=== PATIENT | male | born 1965 | race Hispanic/Latino ===

== ENCOUNTER 2017-11-16 05:15 | Inpatient (IN) | payer OTHER ==
[2017-11-16 06:15] LABS: Basophils % (Auto) 0.9 % (0.0-1.8); Eosinophils % (Auto) 3.1 % (0.0-4.3); Hematocrit 42.6 % (35.5-45.6); Hemoglobin 14.9 gm/dl (11.8-15.2); Mean Corpuscular HGB Conc 35 % (32-34); Mean Corpuscular Hemoglobin 31 pg (28-32); Mean Corpuscular Volume 88 fl (84-94); Platelet Count 155 K/mm3 (140-440); Red Blood Count 4.87 M/mm3 (3.65-5.03); Red Cell Distribution Width 12.6 % (13.2-15.2); White Blood Count 6.2 K/mm3 (4.5-11.0)
[2017-11-16 06:36] LABS: Anion Gap 21 mmol/L; BUN/Creatinine Ratio 13; Blood Urea Nitrogen 10 mg/dL (9-20); Calcium 9.4 mg/dL (8.4-10.2); Carbon Dioxide 20 mmol/L (22-30); Chloride 102.9 mmol/L (98-107); Glucose 110 mg/dL (75-100); Potassium 4.2 mmol/L (3.6-5.0); Sodium 140 mmol/L (137-145)
--- NOTE | 2017-11-16 06:38 | Emergency Department Report ---
ED Chest Pain HPI - General Chief Complaint: Chest Pain Stated Complaint: CHEST PAIN Time Seen by Provider: 11/16/17 06:09 Source: patient, EMS Mode of arrival: Stretcher Limitations: No Limitations - History of Present Illness Initial Comments: This is a 52-year-old male presents to the emergency department with a complaint of some chest pain that has been going on since last night. It radiates up to the left neck and shoulder as well as to the upper left arm. It started after dinner last night but was not very intense and the patient was able to fall asleep. He woke up again at 2 AM and it was worse. At this time he took some Tylenol without any relief of his symptoms. It started to subside again and he was able to get back to sleep but then woke up again at 4 AM and appeared even worse than before. Currently it is an intensity of 6 or 7 out of 10 and is an aching sensation. He denies any shortness of breath, nausea, vomiting, fever. He has a past medical history of hypertension and IBS. He denies any family history of early cardiac disease or events. He denies any tobacco or illicit drug use or abuse. No recent travel or sick contacts at home. Severity scale (0 -10): 7 - Related Data Allergies Allergy/AdvReac Type Severity Reaction Status Date / Time erythromycin base Allergy Unknown Verified 11/16/17 05:48 Heart Score - HEART Score History: Moderately suspicious EKG: Non-specific Age: 45-65 Risk factors: 1-2 risk factors Troponin: < normal limit HEART Score: 4 - Critical Actions Critical Actions: 4-6 pts:12-16.6% risk of adverse cardiac event. Should be admitted ED Review of Systems ROS: Stated complaint: CHEST PAIN Other details as noted in HPI Comment: All other systems reviewed and negative Constitutional: denies: chills, fever Eyes: denies: eye pain, eye discharge, vision change ENT: denies: ear pain, throat pain Respiratory: denies: cough, shortness of breath, wheezing Cardiovascular: chest pain. denies: palpitations Gastrointestinal: denies: abdominal pain, nausea, diarrhea Genitourinary: denies: urgency, dysuria Musculoskeletal: arthralgia. denies: joint swelling Skin: denies: rash, lesions Neurological: denies: headache, weakness, paresthesias ED Past Medical Hx - Past Medical History Previous Medical History?: Yes Hx Hypertension: Yes Additional medical history: IBS - Surgical History Past Surgical History?: Yes Additional Surgical History: Orthopedic - Social History Smoking Status: Never Smoker Substance Use Type: None ED Physical Exam - General Limitations: No Limitations - Other Other exam information: GENERAL: The patient is well-developed well-nourished. HENT: Normocephalic. Atraumatic. Patient has moist mucous membranes. EYES: Extraocular motions are intact. Pupils equal reactive to light bilaterally. NECK: Supple. Trachea is midline. CHEST/LUNGS: Clear to auscultation. There is no respiratory distress noted. Chest pain is not reproducible to palpation of the chest wall. HEART/CARDIOVASCULAR: Regular. There is no tachycardia. There is no murmur. ABDOMEN: Abdomen is soft, nontender. Patient has normal bowel sounds. There is no abdominal distention. SKIN: Skin is warm and dry. NEURO: The patient is awake, alert, and oriented. The patient is cooperative. The patient has no focal neurologic deficits. The patient has normal speech. MUSCULOSKELETAL: There is no tenderness or deformity. There is no limitation range of motion. There is no evidence of acute injury. ED Course Vital Signs 11/16/17 11/16/17 11/16/17 05:30 05:40 05:46 Temperature 97.7 F Pulse Rate 74 78 72 Respiratory 13 18 13 Rate Blood Pressure 151/105 151/105 190/95 O2 Sat by Pulse 96 96 Oximetry 11/16/17 11/16/17 11/16/17 05:53 06:00 06:30 Temperature Pulse Rate 76 70 Respiratory 18 16 12 Rate Blood Pressure 152/110 160/108 O2 Sat by Pulse 98 96 Oximetry 11/16/17 07:00 Temperature Pulse Rate 72 Respiratory 13 Rate Blood Pressure 166/110 O2 Sat by Pulse Oximetry VALERIE score - Valerie Score Age > 65: (0) No Aspirin use within the Past 7 Days: (0) No 3 or more CAD Risk Factors: (0) No 2 or more Angina events in past 24 hrs: (1) Yes Known CAD with more than 50% Stenosis: (0) No Elevated Cardiac Markers: (0) No ST Deviation Greater than 0.5mm: (0) No VALERIE Score: 1 ED Medical Decision Making - Lab Data Result diagrams: 11/16/17 06:01 11/16/17 06:01 - EKG Data -: EKG Interpreted by Me EKG shows normal: sinus rhythm, axis, intervals, QRS complexes (LVH), ST-T waves Rate: normal - EKG Data When compared to previous EKG there are: previous EKG unavailable Interpretation: LVH - Radiology Data Radiology results: image reviewed interpreted by me: Chest x-ray does not show any acute process. There are no pleural effusions, obvious pneumonia and there is no pneumothorax. - Medical Decision Making Patient had 3 different episodes of left-sided chest pain and each time it seems to be worse than the previous. He has a heart score of 4 and a VALERIE score of 1. He has never had a full cardiac workup including stress test. He continues to have some discomfort as well as some hypertension. These reasons he will be admitted to the hospital for further evaluation and treatment and has been accepted for admission by the hospitalist service, and the [facility] Stef[facility]. - Differential Diagnosis IN, PE, Costochondritis, GERD, Muscle Spasm Critical Care Time: No Critical care attestation.: If time is entered above; I have spent that time in minutes in the direct care of this critically ill patient, excluding procedure time. ED Disposition Clinical Impression: Hypertension Qualifiers: Hypertension type: essential hypertension Qualified Code(s): I10 - Essential ( primary) hypertension Chest pain Qualifiers: Chest pain type: other chest pain Qualified Code(s): R07.89 - Other chest pain ; R07.8 - Other chest pain Disposition: 09 OP ADMIT IP TO THIS HOSP Is pt being admited?: Yes Condition: Stable Instructions: Hypertension (ED), Chest Pain (ED) Referrals: BECKY NIXON MD [Primary Care Provider] - 3-5 Days Time of Disposition: 07:32
--- NOTE | 2017-11-16 06:45 | XRay Report ---
FINAL REPORT EXAM: XR CHEST 1V AP HISTORY: CP TECHNIQUE: AP portable view(s) of the chest obtained. PRIORS: None. FINDINGS: No mediastinal shift. Cardiac silhouette is not enlarged. No pneumothorax, effusion, or focal pulmonary opacity identified. No acute skeletal findings. IMPRESSION: No acute pulmonary finding identified.
[2017-11-16 06:57] LABS: INR 0.82 (0.87-1.13)
[2017-11-16] MEDS ORDERED: BABY ASPIRIN PO ONE (06:57)
[2017-11-16 06:58] LABS: Partial Thromboplastin Time 27.8 Sec. (24.2-36.6)
[2017-11-16] MEDS ORDERED: MORPHINE IV ONE (06:58)
[2017-11-16] MEDS ORDERED: LOPRESSOR IV ONE (07:29)
[2017-11-16] MEDS ORDERED: MILK OF MAGNESIA PO PRN (08:32)
[2017-11-16] MEDS ORDERED: TYLENOL PO PRN (08:32)
[2017-11-16] MEDS ORDERED: MORPHINE IV PRN (08:32)
[2017-11-16] MEDS ORDERED: NITROSTAT SL PRN (08:34)
--- NOTE | 2017-11-16 08:34 | History and Physical Report ---
<NELY VERA - Last Filed: 11/16/17 12:17> History of Present Illness Date of examination: 11/16/17 Date of admission: 11/16/2017 Chief complaint: Chest pain History of present illness: Patient is a 52-year-old male with past medical history of hypertension and IBS who presents to emergency department for complaining of left sided chest pain. He states that the pain began last night intermittent left side chest pain right after eating dinner. The pain was located over his substerna somewhat in the left pigastric area. Patient described as, aching pain. The pain lasted for few hours and he states that pain was radiating to left arm up to the left neck and shoulder as well as to the upper left arm. Also this morning around 2:00 Am woke up fro his sleep with the same symptoms; he took Tylon without improvement but he was able to get back to sleep. Patient then woke up again at 4 AM with worst chest pain than before. Also the patient did experience some tingling and numbness in his left arm after the pain ceased. There is no reliving or exacerbating factors. He continued to have several episodes of the pain throughout the night, he decided to come to the emergency departmentThe painful episodes did not increase in intensity or severity during this time. The patient currently rate his pain level 7/10. He denies shortness of breath, and vomiting during these episodes of pain. Patient reported diaphoresis including feeling clammy. Patient had a negative stress test this year. 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 Patient mother had HI at 71, brother HI at 63 and his father had Angina. Past History Past Medical History: hypertension, other (IBS) Past Surgical History: Other (orthopedic surgery to left shoulder and ankle ) Social history: denies: smoking, alcohol abuse Family history: CAD, hypertension Medications and Allergies Allergies Allergy/AdvReac Type Severity Reaction Status Date / Time erythromycin base Allergy Unknown Verified 11/16/17 05:48 Home Medications Medication Instructions Recorded Confirmed Last Taken Type Ciclopirox 0.77% (Nf) [Loprox 1 applic TP PRN 11/16/17 11/16/17 Unknown History 0.77% (Nf)] Clobetasol 0.05% [Temovate] 1 applicatio TP PRN 11/16/17 11/16/17 Unknown History Colesevelam [Welchol] 625 mg PO QDAY 11/16/17 11/16/17 11/15/17 History Dicyclomine [Bentyl] 10 mg PO TID 11/16/17 11/16/17 Unknown History Fluticasone [Flonase] 1 spray NS QDAY 11/16/17 11/16/17 Unknown History Levothyroxine [Synthroid] 50 mcg PO QDAY 11/16/17 11/16/17 11/15/17 History Losartan [Cozaar] 25 mg PO QDAY 11/16/17 11/16/17 11/15/17 History Metoprolol Xl [Metoprolol 25 mg PO QDAY 11/16/17 11/16/17 11/15/17 History SUCCINATE ER TAB] Multivit-Minerals/FA/Lycopene [One 1 each PO QDAY 11/16/17 11/16/17 Unknown History Daily [employer] Tablet] Naproxen Sodium [Aleve] 220 mg PO Q6H PRN 11/16/17 11/16/17 Unknown History Sertraline [Zoloft] 100 mg PO QDAY 11/16/17 11/16/17 11/15/17 History Review of Systems Constitutional: no weight loss, no weight gain, no fever Ears, nose, mouth and throat: no nasal congestion, no nasal discharge, no sinus pressure Cardiovascular: chest pain, palpitations, no syncope, no lightheadedness, no shortness of breath Respiratory: no cough, no cough with sputum, no shortness of breath, no dyspnea on exertion Gastrointestinal: no nausea, no vomiting, no diarrhea Musculoskeletal: no shooting arm pain, no arm numbness/tingling, no shooting leg pain Integumentary: no pruritis, no sores Neurological: no numbness, no tingling, no syncope, no tremors Psychiatric: no anxiety, no memory loss, no change in sleep habits, no sleep disturbances Endocrine: no polyuria, no nocturia, no excessive sweating, no weight change Hematologic/Lymphatic: no easy bleeding Allergic/Immunologic: no urticaria, no allergic rhinitis Exam - Constitutional Vitals: Temp Pulse Resp BP Pulse Ox 98.1 F 71 13 151/106 99 11/16/17 07:10 11/16/17 07:10 11/16/17 07:10 11/16/17 07:10 11/16/17 07:10 General appearance: Present: no acute distress - EENT Eyes: Present: PERRL ENT: hearing intact - Neck Neck: Present: supple - Respiratory Respiratory effort: normal Respiratory: bilateral: CTA - Cardiovascular Rhythm: regular Heart Sounds: Present: S1 & S2 - Abdominal General gastrointestinal: Present: soft, non-tender Male genitourinary: Present: deferred - Rectal Rectal Exam: deferred - Integumentary Integumentary: Present: clear, warm, dry - Musculoskeletal Musculoskeletal: strength equal bilaterally - Psychiatric Psychiatric: appropriate mood/affect - Neurologic Neurologic: CNII-XII intact, moves all extremities - Allied Health Allied health notes reviewed: nursing Results - Labs CBC & Chem 7: 11/16/17 06:01 11/16/17 06:01 Labs: Laboratory Last Values WBC 6.2 K/mm3 (4.5-11.0) 11/16/17 06:01 RBC 4.87 M/mm3 (3.65-5.03) 11/16/17 06:01 Hgb 14.9 gm/dl (11.8-15.2) 11/16/17 06:01 Hct 42.6 % (35.5-45.6) 11/16/17 06:01 MCV 88 fl (84-94) 11/16/17 06:01 MCH 31 pg (28-32) 11/16/17 06:01 MCHC 35 % (32-34) H 11/16/17 06:01 RDW 12.6 % (13.2-15.2) L 11/16/17 06:01 Plt Count 155 K/mm3 (140-440) 11/16/17 06:01 Lymph % (Auto) 32.4 % (13.4-35.0) 11/16/17 06:01 [place] % (Auto) 10.0 % (0.0-7.3) H 11/16/17 06:01 Eos % (Auto) 3.1 % (0.0-4.3) 11/16/17 06:01 Baso % (Auto) 0.9 % (0.0-1.8) 11/16/17 06:01 Lymph # 2.0 K/mm3 (1.2-5.4) 11/16/17 06:01 [place] # 0.6 K/mm3 (0.0-0.8) 11/16/17 06:01 Eos # 0.2 K/mm3 (0.0-0.4) 11/16/17 06:01 Baso # 0.1 K/mm3 (0.0-0.1) 11/16/17 06:01 Seg Neutrophils % 53.6 % (40.0-70.0) 11/16/17 06:01 Seg Neutrophils # 3.3 K/mm3 (1.8-7.7) 11/16/17 06:01 PT 11.7 Sec. (12.2-14.9) L 11/16/17 06:19 INR 0.82 (0.87-1.13) L 11/16/17 06:19 APTT 27.8 Sec. (24.2-36.6) 11/16/17 06:19 D-Dimer < 135.00 ng/mlDDU (0-234) 11/16/17 06:19 Sodium 140 mmol/L (137-145) 11/16/17 06:01 Potassium 4.2 mmol/L (3.6-5.0) 11/16/17 06:01 Chloride 102.9 mmol/L (98-107) 11/16/17 06:01 Carbon Dioxide 20 mmol/L (22-30) L 11/16/17 06:01 Anion Gap 21 mmol/L 11/16/17 06:01 BUN 10 mg/dL (9-20) 11/16/17 06:01 Creatinine 0.8 mg/dL (0.8-1.5) 11/16/17 06:01 Estimated GFR > 60 ml/min 11/16/17 06:01 BUN/Creatinine Ratio 13 % 11/16/17 06:01 Glucose 110 mg/dL (75-100) H 11/16/17 06:01 Calcium 9.4 mg/dL (8.4-10.2) 11/16/17 06:01 Troponin T < 0.010 ng/mL (0.00-0.029) 11/16/17 06:01 - Imaging and Cardiology Chest x-ray: image reviewed (Unrmarkable ) Assessment and Plan Assessment and plan: Patient is a 52-year-old male with past medical history of hypertension and IBS who presents to emergency department for complaining of left sided chest pain. Chest Pain We will admit to telemetry floor. EKG normal sinus rate [address] elevation or T-wave inversion. We will get another EKG ordered for a changes that have taken since the first one obtained Negative cardiac enzyme X3 Start on aspirin Nitroglycerin when necessary Morphine ordered for pain Stress test ordered. Hypertension Continue on home antihypertensive medication IV hydralazine for SBP >160 Closely monitor blood pressure DVT prophylaxis Lovenox Advance Directives: Yes VTE prophylaxis?: Chemical Contraindication Mechanical VTE Prophylaxis: Treatment Not Indicated Plan of care discussed with patient/family: Yes <DENISE SHERMAN - Last Filed: 11/16/17 13:29> History of Present Illness Date of admission: 11/16/17 08:32 Medications and Allergies Active Meds: Active Medications Acetaminophen (Tylenol) 650 mg PO Q4H PRN PRN Reason: Pain MILD(1-3)/Fever >100.5/GONZALEZ Aspirin (Aspirin) 325 mg PO DAILY [facility] Last Admin: 11/16/17 11:13 Dose: Not Given Bisacodyl (Dulcolax) 10 mg [place] QDAY PRN PRN Reason: Constipation unrelieved by MOM Enoxaparin Sodium (Lovenox) 40 mg SUB-Q QDAY [facility] Last Admin: 11/16/17 11:59 Dose: 40 mg Losartan Potassium (Cozaar) 25 mg PO DAILY [facility] Last Admin: 11/16/17 12:01 Dose: 25 mg Magnesium Hydroxide (Milk Of Magnesia) 30 ml PO Q4H PRN PRN Reason: Constipation Metoprolol Succinate (Toprol Xl) 25 mg PO QDAY [facility] Last Admin: 11/16/17 12:25 Dose: Not Given Morphine Sulfate (Morphine) 2 mg IV Q4H PRN PRN Reason: Pain, Moderate (4-6) Nitroglycerin (Nitrostat) 0.4 mg SL .Q5MIN PRN PRN Reason: Chest Pain Exam - Constitutional Vitals: Temp Pulse Resp BP Pulse Ox 98.2 F 63 18 132/94 95 11/16/17 11:07 11/16/17 12:01 11/16/17 11:07 11/16/17 12:01 11/16/17 11:07 General appearance: Present: no acute distress, well-nourished - EENT Eyes: Present: PERRL, EOM intact ENT: clear oral mucosa - Neck Neck: Present: supple, normal ROM - Respiratory Respiratory effort: normal Respiratory: bilateral: CTA - Cardiovascular Rhythm: regular Heart Sounds: Present: S1 & S2. Absent: gallop, systolic murmur, diastolic murmur, rub, click - Extremities Extremities: no ischemia, pulses intact, pulses symmetrical, No edema, normal temperature, normal color, Full ROM Peripheral Pulses: within normal limits - Abdominal General gastrointestinal: Present: non-distended, normal bowel sounds - Integumentary Integumentary: Present: clear, warm, dry - Musculoskeletal Musculoskeletal: strength equal bilaterally - Psychiatric Psychiatric: appropriate mood/affect, intact judgment & insight, cooperative - Allied Health Allied health notes reviewed: nursing Results - Labs CBC & Chem 7: 11/16/17 06:01 11/16/17 06:01 Labs: Laboratory Last Values WBC 6.2 K/mm3 (4.5-11.0) 11/16/17 06:01 RBC 4.87 M/mm3 (3.65-5.03) 11/16/17 06:01 Hgb 14.9 gm/dl (11.8-15.2) 11/16/17 06:01 Hct 42.6 % (35.5-45.6) 11/16/17 06:01 MCV 88 fl (84-94) 11/16/17 06:01 MCH 31 pg (28-32) 11/16/17 06:01 MCHC 35 % (32-34) H 11/16/17 06:01 RDW 12.6 % (13.2-15.2) L 11/16/17 06:01 Plt Count 155 K/mm3 (140-440) 11/16/17 06:01 Lymph % (Auto) 32.4 % (13.4-35.0) 11/16/17 06:01 [place] % (Auto) 10.0 % (0.0-7.3) H 11/16/17 06:01 Eos % (Auto) 3.1 % (0.0-4.3) 11/16/17 06:01 Baso % (Auto) 0.9 % (0.0-1.8) 11/16/17 06:01 Lymph # 2.0 K/mm3 (1.2-5.4) 11/16/17 06:01 [place] # 0.6 K/mm3 (0.0-0.8) 11/16/17 06:01 Eos # 0.2 K/mm3 (0.0-0.4) 11/16/17 06:01 Baso # 0.1 K/mm3 (0.0-0.1) 11/16/17 06:01 Seg Neutrophils % 53.6 % (40.0-70.0) 11/16/17 06:01 Seg Neutrophils # 3.3 K/mm3 (1.8-7.7) 11/16/17 06:01 PT 11.7 Sec. (12.2-14.9) L 11/16/17 06:19 INR 0.82 (0.87-1.13) L 11/16/17 06:19 APTT 27.8 Sec. (24.2-36.6) 11/16/17 06:19 D-Dimer < 135.00 ng/mlDDU (0-234) 11/16/17 06:19 Sodium 140 mmol/L (137-145) 11/16/17 06:01 Potassium 4.2 mmol/L (3.6-5.0) 11/16/17 06:01 Chloride 102.9 mmol/L (98-107) 11/16/17 06:01 Carbon Dioxide 20 mmol/L (22-30) L 11/16/17 06:01 Anion Gap 21 mmol/L 11/16/17 06:01 BUN 10 mg/dL (9-20) 11/16/17 06:01 Creatinine 0.8 mg/dL (0.8-1.5) 11/16/17 06:01 Estimated GFR > 60 ml/min 11/16/17 06:01 BUN/Creatinine Ratio 13 % 11/16/17 06:01 Glucose 110 mg/dL (75-100) H 11/16/17 06:01 Calcium 9.4 mg/dL (8.4-10.2) 11/16/17 06:01 Troponin T < 0.010 ng/mL (0.00-0.029) 11/16/17 09:18 Assessment and Plan Assessment and plan: I saw and evaluated the patient. I agree with the findings and the plan of care as documented in the Nurse Practitioner's~note, with the following corrections and additions.
[2017-11-16] MEDS ORDERED: DULCOLAX PR PRN (10:00)
[2017-11-16] MEDS: ASPIRIN PO SCH (11:13)
[2017-11-16] MEDS: LOVENOX SUB-Q SCH (11:59)
[2017-11-16] MEDS: COZAAR PO SCH (12:01)
--- NOTE | 2017-11-16 12:24 | Consultation ---
History of Present Illness Consult date: 11/16/17 Consult reason: chest pain History of present illness: 52-year-old man with a history of hypertension, who presented to the emergency room with left shoulder and left upper chest pain. The pain was nonexertional, occurred while he was at rest. There was no shortness of breath, no diaphoresis and no associated symptoms. He exercises regularly, most recently last week, no chest pain on exercise and no exercise limitations. He presented to the emergency room where he was evaluated and referred for admission. Cardiac consultation was requested. ECG is normal sinus rhythm, normal ECG. Cardiac enzymes are normal. Past history of hypertension on losartan and metoprolol. No prior cardiac history. A routine stress test with thallium done earlier this year at [facility] was normal per patient report. Past History Past Medical History: hypertension, other (IBS) Past Surgical History: Other (orthopedic surgery to left shoulder and ankle ) Social history: denies: smoking, alcohol abuse Family history: CAD, hypertension Medications and Allergies Allergies Allergy/AdvReac Type Severity Reaction Status Date / Time erythromycin base Allergy Unknown Verified 11/16/17 05:48 Home Medications Medication Instructions Recorded Confirmed Last Taken Type Ciclopirox 0.77% (Nf) [Loprox 1 applic TP PRN 11/16/17 11/16/17 Unknown History 0.77% (Nf)] Clobetasol 0.05% [Temovate] 1 applicatio TP PRN 11/16/17 11/16/17 Unknown History Colesevelam [Welchol] 625 mg PO QDAY 11/16/17 11/16/17 11/15/17 History Dicyclomine [Bentyl] 10 mg PO TID 11/16/17 11/16/17 Unknown History Fluticasone [Flonase] 1 spray NS QDAY 11/16/17 11/16/17 Unknown History Levothyroxine [Synthroid] 50 mcg PO QDAY 11/16/17 11/16/17 11/15/17 History Losartan [Cozaar] 25 mg PO QDAY 11/16/17 11/16/17 11/15/17 History Metoprolol Xl [Metoprolol 25 mg PO QDAY 11/16/17 11/16/17 11/15/17 History SUCCINATE ER TAB] Multivit-Minerals/FA/Lycopene [One 1 each PO QDAY 11/16/17 11/16/17 Unknown History Daily [employer] Tablet] Naproxen Sodium [Aleve] 220 mg PO Q6H PRN 11/16/17 11/16/17 Unknown History Sertraline [Zoloft] 100 mg PO QDAY 11/16/17 11/16/17 11/15/17 History Active Meds: Active Medications Acetaminophen (Tylenol) 650 mg PO Q4H PRN PRN Reason: Pain MILD(1-3)/Fever >100.5/GONZALEZ Aspirin (Aspirin) 325 mg PO DAILY [facility] Last Admin: 11/16/17 11:13 Dose: Not Given Bisacodyl (Dulcolax) 10 mg [place] QDAY PRN PRN Reason: Constipation unrelieved by MOM Enoxaparin Sodium (Lovenox) 40 mg SUB-Q QDAY [facility] Last Admin: 11/16/17 11:59 Dose: 40 mg Losartan Potassium (Cozaar) 25 mg PO DAILY [facility] Last Admin: 11/16/17 12:01 Dose: 25 mg Magnesium Hydroxide (Milk Of Magnesia) 30 ml PO Q4H PRN PRN Reason: Constipation Metoprolol Succinate (Toprol Xl) 25 mg PO QDAY [facility] Morphine Sulfate (Morphine) 2 mg IV Q4H PRN PRN Reason: Pain, Moderate (4-6) Nitroglycerin (Nitrostat) 0.4 mg SL .Q5MIN PRN PRN Reason: Chest Pain Review of Systems Cardiovascular: chest pain, no orthopnea, no palpitations, no rapid/irregular heart beat, no edema, no syncope, no lightheadedness, no shortness of breath Physical Examination Vital Signs Pulse Resp BP 74 13 151/105 11/16/17 05:30 11/16/17 05:30 11/16/17 05:30 General appearance: no acute distress HEENT: Positive: PERRL Neck: Positive: neck supple Cardiac: Positive: Reg Rate and Rhythm Lungs: Positive: Normal Exam Neuro: Positive: Grossly Intact Abdomen: Positive: Soft Male genitourinary: Positive: deferred Skin: Positive: Clear Extremities: Absent: edema Results 11/16/17 06:01 11/16/17 06:01 Coagulation 11/16/17 Range/Units 06:19 PT 11.7 L (12.2-14.9) Sec. INR 0.82 L (0.87-1.13) APTT 27.8 (24.2-36.6) Sec. CBC 11/16/17 Range/Units 06:01 WBC 6.2 (4.5-11.0) K/mm3 RBC 4.87 (3.65-5.03) M/mm3 Hgb 14.9 (11.8-15.2) gm/dl Hct 42.6 (35.5-45.6) % Plt Count 155 (140-440) K/mm3 Lymph # 2.0 (1.2-5.4) K/mm3 Rhea # 0.6 (0.0-0.8) K/mm3 Eos # 0.2 (0.0-0.4) K/mm3 Baso # 0.1 (0.0-0.1) K/mm3 Comprehensive Metabolic Panel 11/16/17 Range/Units 06:01 Sodium 140 (137-145) mmol/L Potassium 4.2 (3.6-5.0) mmol/L Chloride 102.9 (98-107) mmol/L Carbon Dioxide 20 L (22-30) mmol/L BUN 10 (9-20) mg/dL Creatinine 0.8 (0.8-1.5) mg/dL Glucose 110 H (75-100) mg/dL Calcium 9.4 (8.4-10.2) mg/dL EKG interpretations - Telemetry EKG Rhythm: Sinus Rhythm Assessment and Plan - Patient Problems (1) Chest pain Current Visit: Yes Status: Acute Qualifiers: Chest pain type: other chest pain Qualified Code(s): R07.89 - Other chest pain; R07.8 - Other chest pain Plan to address problem: Chest pain is atypical, ECG is normal, cardiac enzymes are normal. Patient has been admitted for rule out [place] protocol. We'll get a treadmill exercise ECG test in the morning.
[2017-11-16] MEDS: TOPROL XL PO SCH (12:25)
[2017-11-16] MEDS: WELCHOL PO SCH (21:19)
[2017-11-16] MEDS ORDERED: ZOLOFT PO SCH (22:00)
--- NOTE | 2017-11-17 09:47 | Progress Note ---
Assessment and Plan Chest Pain - atypical Normal treadmill stress test this morning Patient exercise 9 min 22 sec achieving a target heart rate of 152 which represents 95% of his MPHR - no ischemic changes, no limiting symptoms Systemic Hypertension Recommendations: Patient may go home cardiac zambrano Subjective Date of service: 11/17/17 Principal diagnosis: Chest Pain Interval history: Patient completed a Oliverio protocol TMST without symptoms - no complications Objective Vital Signs Temp Pulse Resp BP BP Pulse Ox 11/17/17 07:58 98.4 F 88 20 139/103 96 11/17/17 03:50 98.4 F 76 20 142/86 96 11/16/17 23:22 97.3 F L 20 144/95 11/16/17 21:51 76 11/16/17 19:45 20 11/16/17 19:09 97.7 F 80 16 148/100 96 11/16/17 15:56 97.7 F 73 18 142/101 97 11/16/17 12:01 63 132/94 11/16/17 11:07 98.2 F 63 18 132/94 95 11/16/17 10:31 68 11/16/17 10:30 63 12 133/93 97 11/16/17 10:00 61 16 142/96 96 - Physical Examination HEENT: Positive: PERRL Neck: Positive: neck supple Cardiac: Positive: Reg Rate and Rhythm Lungs: Positive: Normal Exam Neuro: Positive: Grossly Intact Abdomen: Positive: Soft Skin: Positive: Clear Extremities: Absent: edema
--- NOTE | 2017-11-17 11:25 | Discharge Summary ---
Providers - Providers Date of Admission: 11/16/17 08:32 Attending physician: DENISE SHERMAN MD 11/16/17 08:40 Consult to Physician [CONS] Routine Consulting Provider: MEHREEN CEJA Reason For Exam: Chest pain Place consult to:: yes Notified:: y Phone number called:: yes Primary care physician: BECKY NIXON Hospitalization Reason for admission: chest pain Condition: Stable Hospital course: Patient is a 52-year-old male with past medical history of hypertension and IBS who presents to emergency department for complaining of left sided chest pain. He states that the pain began last night intermittent left side chest pain right after eating dinner. The pain was located over his substerna somewhat in the left pigastric area. Patient described as, aching pain. The pain lasted for few hours and he states that pain was radiating to left arm up to the left neck and shoulder as well as to the upper left arm. Also this morning around 2:00 Am woke up fro his sleep with the same symptoms; he took Tylenol without improvement but he was able to get back to sleep. Patient then woke up again at 4 AM with worst chest pain than before. Also the patient did experience some tingling and numbness in his left arm after the pain ceased. There is no reliving or exacerbating factors. He continued to have several episodes of the pain throughout the night, he decided to come to the emergency departmentThe painful episodes did not increase in intensity or severity during this time. The patient currently rate his pain level 7/10. He denies shortness of breath, and vomiting during these episodes of pain. Patient reported diaphoresis including feeling clammy. Patient had a negative stress test this year. [facility] [place]. Patient mother had ID at 71, brother ID at 63 and his father had Angina. Hospital the patient's EKG showed normal sinus rhythm the patient proceeded to have a routine stress test which was normal and is stable at this discharge recommended follow-up with primary care physician. On examination the patient' s pain appeared to be musculoskeletal I recommended some [id number] Tylenol and ibuprofen if needed. If not resolved or if reoccurs patient should follow with her primary care physician for additional management. Patient was seen by [facility] during this hospitalization Discharge diagnosis Atypical chest pain likely secondary to costochondritis Hypertensive urgency Disposition: DC-01 TO HOME OR SELFCARE Time spent for discharge: 35 mins Core Measure Documentation - Palliative Care Palliative Care/ Comfort Measures: Not Applicable - Core Measures Any of the following diagnoses?: none - VTE Discharge Requirements Deep Vein Thrombosis/Pulmonary Embolism Present on Admission: No Exam - Physical Exam Narrative exam: VITAL SIGNS: Reviewed. GENERAL: The patient appeared well nourished and normally developed. Vital signs as documented. HEAD: No signs of head trauma. EYES: Pupils are equal. Extraocular motions intact. EARS: Hearing grossly intact. MOUTH: Oropharynx is normal. NECK: No adenopathy, no JVD. CHEST: Chest with clear breath sounds bilaterally. No wheezes, rales, or rhonchi. CARDIAC: Regular rate and rhythm. S1 and S2, without murmurs, gallops, or rubs. VASCULAR: No Edema. Peripheral pulses normal and equal in all extremities. ABDOMEN: Soft, without detectable tenderness. No sign of distention. No rebound or guarding, and no masses palpated. Bowel Sounds normal. MUSCULOSKELETAL: Good range of motion of all major joints. Extremities without clubbing, cyanosis or edema. NEUROLOGIC EXAM: Alert and oriented x 3. No focal sensory or strength deficits. Speech normal. Follows commands. PSYCHIATRIC: Mood normal. SKIN: No rash or lesions. - Constitutional Vitals: Temp Pulse Resp BP Pulse Ox 98.4 F 88 20 139/103 96 11/17/17 07:58 11/17/17 07:58 11/17/17 07:58 11/17/17 07:58 11/17/17 07:58 Plan Activity: advance as tolerated, fall precautions Diet: low salt Special Instructions: record daily BP diary Additional Instructions: Follow with [facility] Follow up with: CHARO PIERRE MD [Staff Physician] - 7 Days BECKY NIXON MD [Primary Care Provider] - 3-5 Days
[2017-11-17] MEDS: TOPROL XL PO SCH (11:47)
[2017-11-17] MEDS: ASPIRIN PO SCH (11:47)
[2017-11-17] MEDS: WELCHOL PO SCH (11:48)
[2017-11-17] MEDS: LOVENOX SUB-Q SCH (11:48)
[2017-11-17 11:49] VITALS: BP 138/93
[2017-11-17] MEDS: COZAAR PO SCH (11:49)
--- NOTE | 2017-11-18 03:38 | Treadmill Report ---
TREADMILL STRESS TEST INDICATION: Chest pain. ORDERING PHYSICIAN: Paris Marquez MD. After obtaining written consent, the patient underwent a treadmill stress test Oliverio protocol. The patient exercised 9 minutes and 22 seconds achieving a heart of 158, which is 92% of the maximal age predicted heart rate. Baseline blood pressure was 138/96 with a peak blood pressure of 160/92. No limiting chest pain or shortness of breath was reported. No ischemic EKG changes were recorded. IMPRESSION: This is a normal treadmill stress test with excellent exercise tolerance. This is a low risk cardiovascular treadmill stress test associated with a 1-year cardiovascular mortality of less than 1%. JOB# [id number] MIMI/JAMIN
[2017-11-18] MEDS ORDERED: BENTYL PO SCH (08:00)
== END 2017-11-17 13:03 | disposition home or self-care (01) | DRG 206 ==
LOC: ED 05:15 → 4A 08:32
PROVIDERS: ADMIT Internal Medicine; ATTEND Internal Medicine
DX: M94.0 Chondrocostal junction syndrome [Tietze] (principal); I10 Essential (primary) hypertension; K58.9 Irritable bowel syndrome, unspecified; I16.0 Hypertensive urgency; Z82.49 Family history of ischemic heart disease and other diseases of the circulatory system; Z88.1 Allergy status to other antibiotic agents; Z79.899 Other long term (current) drug therapy
CPT/HCPCS: 36415; 71010; 80048; 82962; 84484; 85025; 85379; 85610; 85730; 93005; 93010; 93017; 96374; 96375; J1650; J2270